=== PATIENT | male | born 2005 | race Caucasian/White ===

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

== ENCOUNTER 2025-07-27 20:23 | Emergency (ER) | payer BC, SELFPAY ==
--- OUTSIDE RECORDS SUMMARY | 2018-09-28 08:11 | XMS_ITS | Continuity of Care Document ---
Author [place] [facility] [address] [place] [address] Phone Care Team Providers Care Engine Specialist Name Role Phone Alexey Marcial Unavailable Unavailable Advance Directives Directive Yes / No Effective Date File Name No Information Encounters Encounter Description Practice Location Reason(s) For Visit Diagnoses Date Provider Providers Copied on Encounter [facility], [address] [place] [address], [facility], tel:[phone] *Trevin Veliz [facility] No Information Aniket Blackburn. [address] [place] [address], [facility], . tel:[phone] Family History Family Member Type Diagnosis Age At Onset No Information Payers Payer name Insurance type Covered democrat ID Authoriza tion(s) No Information Social History Type Description Quantity Date Captured Comments Sex Male Smoking Status No Information Chief Complaint And Reason For Visit No Information Reason For Referral Reason For Referral No Information History Of Present Illness Encounter Date Complaint History Of Prese nt Illness No Information Functional Status Date Functional Assessmen t No Information Instructions Date Instruction Additional Infor mation No Information Assessments Type Assessment Date No Information Patient Care Teams Name Effective Dates (start - stop) Status Members No Information
--- OUTSIDE RECORDS SUMMARY | 2025-07-27 20:28 | XMS_ITS | Encounter Summary ---
Author Organization [facility] Address [address] [place] [address] Care Team Providers Care Optician Manager Name Role Phone Unavailable Primary Care Provider Unavailabl e Encounter Details Date Type Department Care Team (Late st Contact Info) Description 03/31/2008 Outpatient Historical [facility] Wound Care [address] 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
--- OUTSIDE RECORDS SUMMARY | 2025-07-27 20:28 | XMS_ITS | Encounter Summary ---
Author Organization [facility] Address [address] [place] [address] Care Team Providers Care Dumper Bailer Operator Name Role Phone Unavailable Primary Care Provider Unavailabl e Encounter Details Date Type Department Care Team (Late st Contact Info) Description 05/01/2008 Outpatient Historical [facility] Wound Care [address] 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
--- OUTSIDE RECORDS SUMMARY | 2025-07-27 20:28 | XMS_ITS | Encounter Summary ---
Author Organization [facility] Address [address] [place] [address] Care Team Providers Care Gear Shaper Name Role Phone Unavailable Primary Care Provider Unavailabl e Encounter Details Date Type Department Care Team (Late st Contact Info) Description 02/29/2008 Outpatient Historical [facility] Wound Care [address] 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
--- OUTSIDE RECORDS SUMMARY | 2025-07-27 20:28 | XMS_ITS | Clinical Summary ---
Author Organization [facility] Address [address] [place] [address] Care Team Providers Care Infirmary Attendant Name Role Phone Unavailable Primary Care Provider Unavailabl e Allergies No known active allergies Medications inhalational spacing device (AEROCHAMBER) [facility].(Non-Drug; Combo Route) route. 1 Device 0 1 Active albuterol (PROVENTIL,SHARLENE TOLIN) 90 mcg/Actuation Inhalation HFAA Take 2 Puffs by inhalation every 4 hours as needed for Wheezing and Shortness of Breath. 1 Inhaler 3 1 Active montelukast (SINGULAIR) 5 mg Oral Chew Take 1 Tab by mouth see administration instructions. 30 Tab 5 1 Active loratadine (CLARITIN) 10 mg Oral tablet Take 1 Tab by mouth daily. 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 Gender Identity Not on file Sexual Orientation Not on file Last Filed Vital Signs Vital Sign Reading Time Taken Comments Blood Pressure 90/60 05/22/2012 2:44 PM CDT Pulse 76 05/22/2012 2:44 PM CDT Temperature 37.2 C (98.9 F) 05/22/2012 2:44 PM CDT Respiratory Rate 24 05/22/2012 2:44 PM CDT Oxygen Saturation - - Inhaled Oxygen Concentration - - Weight 28.3 kg (62 lb 6.4 oz) 05/22/2012 2:44 PM CDT Height 128.9 cm (4' 2.75 ) 05/22/2012 2:44 PM CD T Body Mass Index 17.03 05/22/2012 2:44 PM CDT Plan of Treatment Health Maintenance Due Date Last Done Comments HPV VACCINES (1 - Male 3-dose series) 2018 DTAP/TDAP/TD VACCINES (1 - Tdap) 2022 HEPATITIS B VACCINES (1 of 3 - 19+ 3-dose series) 06/25 INFLUENZA VACCINE (#1) 2025 Insurance MEDICAID [place]
[2025-07-27 20:40] VITALS: BP 122/76; PULSE 56; RESP 17; TEMP 36.7; O2SAT 99; BMI 19.6
--- NOTE | 2025-07-27 20:46 | W.ED.WOUNDLC ---
HPI - Wound/Laceration General: Chief Complaint: Wound/Laceration Stated Complaint: cut leg with chainsaw Time Seen by Provider: 07/27/25 20:24 Source: patient Mode of arrival: ambulatory Limitations: no limitations History of Present Illness: Patient is a 20-year-old male resents to ED today for evaluation of a laceration to his left hand that he sustained approximately 20 hours ago while using a chainsaw. He states that it kicked back and struck him to his left knee. Patient states he did not notice it until later when he noticed blood dripping down his leg. He states he is only here today because family was concerned and made him come. He has been ambulatory on the extremity without difficulty or assistance. Last tetanus is unknown. Onset (ago): hour(s) Extremity Location: Left: knee Place: home Patient tetanus UTD: No Context: accidental Associated symptoms: Reports no associated symptoms Related Data Previous Rx's ?Medication ?Instructions ?Recorded ondansetron 4 mg disintegrating 4 mg PO Q6H PRN nausea and 05/31/24 tablet vomiting #12 tabs sulfamethoxazole 800 1 tab PO BID 7 days #14 tabs 07/27/25 mg-trimethoprim 160 mg tablet (Bactrim DS) Allergies Allergy/AdvReac Type Severity Reaction Status Date / Time No Known Allergies Allergy Verified 07/27/25 20:45 Review of Systems Musc: Denies: extremity pain, extremity swelling, joint pain, joint swelling, joint redness, joint warmth, joint stiffness or limited range of motion Skin/Breast: Reports: other (L knee laceration) Neuro: Denies: numbness in extremities, weakness in extremities, sensory changes or difficulty walking [facility] ED PFSH: Medical History No pertinent past medical history Surgical History No pertinent past surgical history Family History Other Cancer Social History Smoking and tobacco/nicotine status: current every day tobacco/nicotine user Alcohol intake: never Substance/Drug Use: never Physical Exam Const: COMMON NORMALS: no acute distress, average body habitus, no limitations, healthy appearing, alert and well nourished Extremity: COMMON NORMALS: full ROM and capillary refill normal GENERAL: Yes normal exam except as noted LEFT LOWER EXTREMITY: Yes knee joint (2cm superficial laceration to lateral L knee-full ROM) Left knee: Yes ROM (normal), Yes neurovascular exam (normal) and Yes other (no bony tenderness-laceration superficial) Neuro: COMMON NORMALS: moves all extremities, no focal motor deficits and no sensory deficits noted SENSORIUM/ORIENTATION: Yes alert Skin: TRAUMA: laceration Course Vital Signs: Vital signs: Vital Signs Temperature 98.1 F 07/27/25 20:40 Pulse Rate 56 L 07/27/25 20:40 Respiratory Rate 17 07/27/25 20:40 Blood Pressure 127/76 07/27/25 20:56 Pulse Oximetry 100 07/27/25 20:56 Oxygen Delivery Me thod Room Air 07/27/25 20:56 MDM - Wound/Laceration Medical Decision Making No bony tenderness/full ROM/easily ambulatory. Do not feel XR imaging indicated. Tetanus updated. Wound 20+ hours old. Copiously irrigated and loosely approximated with steri-strip. Will place on prophylactic antibiotics. Wound care/infection precautions discussed. Differential Diagnosis Likely laceration Medical Records I reviewed the patient's medical records. No radiology studies performed this visit Discharge Plan Discharge Patient Disposition: Home Clinical Impression: Laceration of knee, left Qualifiers: Encounter type: initial encounter Qualified Code(s): S81.012A - Laceration without foreign body, left knee, initial encounter Condition: Stable Prescriptions: New sulfamethoxazole-trimethoprim [Bactrim DS] 800-160 mg tablet 1 tab PO BID 7 Days Qty: 14 0RF No Action ondansetron 4 mg tablet,disintegrating 4 mg PO Q6H PRN (Reason: nausea and vomiting) Qty: 12 0RF Rx Instructions: 340b please Discharge Orders: Discharge ED (Routine); Ordered 07/27/25 Ordered By: Jennifer Cary Patient Instructions: Laceration (DC), Patient Portal & [facility]son Instructions Activity Restrictions/Additional Instructions: As we discussed, wound was 18+ hours old at time of presentation to the emergency department. We will copiously irrigate and loosely close. We will place you on prophylactic antibiotics. Fill these tomorrow and finish entire course. You were given a dose tonight prior to discharge. Keep wound/laceration clean with warm soap and water twice daily. Monitor for signs of infection such as redness, swelling, increased pain, or drainage. Please seek medical re-evaluation if these occur. Print Language: Khmer Coding Level of Care Code ED Route Driver for Dorota Rubi
[2025-07-27 20:56] VITALS: BP 127/76; O2SAT 100
[2025-07-27] MEDS: tetanus-dipt-pertussis 0.5 mL SDV IM (21:20)
[2025-07-27] MEDS: sulfamethoxazole-trimeth DS 160-800 mg Tablet 1 TAB PO (21:20)
[2025-07-27 21:25] VITALS: BP 124/74; PULSE 63; RESP 18; O2SAT 100
== END 2025-07-27 21:29 | disposition home or self-care (01) ==
PROVIDERS: Emergency Provider Physician Assistant
DX: S81.012A Laceration without foreign body, left knee, initial encounter (principal); Z72.0 Tobacco use; W29.3XXA Contact with powered garden and outdoor hand tools and machinery, initial encounter
CPT/HCPCS: 90715; 99283; J9999